=== PATIENT | male | born 1965 | race Caucasian/White ===

== ENCOUNTER 2020-07-10 13:27 | Emergency (ER) | payer MEDICAID, SELFPAY ==
[2020-07-10 14:03] VITALS: BP 154/96; PULSE 79; RESP 18; TEMP 37.3; O2SAT 98; BMI 26.6
--- NOTE | 2020-07-10 14:31 | XR_ITS ---
EXAMINATION: XR HAND, RIGHT CLINICAL INFORMATION: Injury COMPARISON: None TECHNIQUE: PA, lateral, and oblique views of the right hand. FINDINGS: Visualized portion of the distal radius and ulna demonstrate no acute fracture. Carpal rows are well aligned. No carpal bone fracture. Mild soft tissue swelling overlying the fifth metacarpal. No metacarpal fracture. No phalanx fracture. MCP and IP joints are well-maintained diffusely. XR/XR hand RT min 3V IMPRESSION: Mild soft tissue swelling overlying the fifth metacarpal without underlying fracture.
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
--- NOTE | 2020-07-10 15:56 | PC.NURSE ---
WAITING FOR BUNCHER MACHINE FOR D/C.
[2020-07-10 16:00] VITALS: BP 129/67; PULSE 71; RESP 16; O2SAT 97
== END 2020-07-10 16:04 | disposition home or self-care (01) ==
PROVIDERS: Emergency Provider Emergency Medicine; PCP Internal Medicine
DX: S60.221A Contusion of right hand, initial encounter (principal); M79.641 Pain in right hand; V43.62XA Car passenger injured in collision with other type car in traffic accident, initial encounter; Y93.9 Activity, unspecified; Y92.410 Unspecified street and highway as the place of occurrence of the external cause; Y99.9 Unspecified external cause status
CPT/HCPCS: 73130; 99283; 99284